=== PATIENT | female | born 1990 | race Caucasian/White ===

== ENCOUNTER 2025-03-20 14:55 | Emergency (ER) | payer BC, SELFPAY ==
--- NOTE | ~2025-03-20 | CT_ITS ---
CLINICAL HISTORY: lower abdominal pain CT abdomen and pelvis with contrast Comparison: None provided Findings: LIMITED CHEST: Lung bases are clear. LIVER: No focal liver lesion. BILIARY: No gallbladder wall thickening, radiopaque stone, or ductal dilatation. PANCREAS: No mass or ductal dilatation. SPLEEN: No splenomegaly. KIDNEYS: No hydronephrosis or radiopaque stone. ADRENALS: No nodule. VASCULAR: No aneurysm. RETROPERITONEUM: No lymphadenopathy or mass. BOWEL/MESENTERY: No evidence of obstruction. No free fluid or air. Normal appendix. ABDOMINAL WALL: No mass or significant abnormality. URINARY BLADDER: No focal wall thickening. PELVIC NODES: No pelvic lymphadenopathy. PELVIC ORGANS: Right adnexal cystic lesion measuring 3.2 cm. Normal appearance of the left ovary. Retroflexed uterus. BONES: No acute fracture. OTHER: Negative. IMPRESSION: Right adnexal cystic lesion measuring 3.2 cm, may be ovarian in origin. This would be better evaluated with ultrasound. Normal appendix. This document has been electronically signed by: Sharonda Quigley MD on 03/20/2025 19:15:52
[2025-03-20 15:27] VITALS: BP 137/99; PULSE 92; RESP 18; TEMP 36.4; O2SAT 98; BMI 25.1
--- NOTE | 2025-03-20 15:27 | ED_ITS ---
HPI - General Adult General Chief complaint: Abdominal Pain Stated complaint: abd pain quest uti breast pain Time Seen by Provider: 03/20/25 16:29 Source: patient and family (patient's mother (via telephone)) Mode of arrival: ambulatory Limitations: no limitations History of Present Illness ED Provider: Tatianna Keatnig PA-C HPI narrative: Patient is a 34 year old assigned female at with a history of PTSD presenting to the emergency department today with increased anxiety, inability to sleep, right lower quadrant abdominal pain, and right sided breast pain. Patient states that over the last few days she has felt much more anxious / worked up and unable to sleep. Patient states that she has also been having right lower quadrant abdominal pain. Patient states that her right breast has been hurting intermittently for awhile and she had a mammogram that showed she had dense breasts. Patient's mother states that the patient has not been taking the Ativan she was prescribed to sleep and she convinced her to take one today but she was considering tricking her with one. Patient states that this started after receiving prednisone for a pinched nerve in the right shoulder. Patient states that she has been off of the prednisone for several days. Patient states that was she was incorrectly diagnosed as Bipolar several years ago during a psychiatric hospitalization because the facility found out that her father has bipolar disorder. Patient states that she has since [facility] with [facility] and [facility] stated that she has anxiety disorder and PTSD but not bipolar disorder. Patient states that she continues to be in the guard / . Patient denies any other complaints at this time. Related Data Home Medications ?Medication ?Instructions ?Recorded ?Confirmed hydroxyzine pamoate 25 mg capsule 25 mg PO Q6H PRN Anx iety 03/21/25 03/21/25 lorazepam 1 mg tablet 1 mg PO DAILY PRN Insomnia 1 05/21/24 03/21/25 Previous Rx's ?Medication ?Instructions ?Recorded cefuroxime axetil 250 mg tablet 250 mg PO Q12H 5 days #10 tabs 03/21/25 cephalexin 500 mg capsule 500 mg PO Q12H #13 caps 02/28 07/21 phenazopyridine 200 mg tablet 200 mg PO TID PRN Burnin g with 03/21/25 (Pyridium) urination 3 days #9 tabs phenazopyridine 200 mg tablet 200 mg PO TID PRN pain # 10 tabs 03/21/25 (Pyridium) Allergies Allergy/AdvReac Type Severity Reaction Status Date / Time No Known Allergies Allergy Verified 03/20/25 15:30 Review of Systems 2 Constitutional: Constitutional: Reports as per HPI Eyes: Eyes: Reports as per HPI ENT: Reports as per HPI Cardiovascular: Cardiovascular: Reports as per HPI Respiratory: Respiratory: Reports as per HPI Gastrointestinal: Gastrointestinal: Reports as per HPI Genitourinary: Genitourinary: Reports as per HPI Musculoskeletal: Musculoskeletal: Reports as per HPI Integumentary/Breasts: Skin/Breast: Reports as per HPI Neurologic: Reports as per HPI Psychiatric: Psychiatric: Reports as per HPI Endocrine: Endocrine: Reports as per HPI Hematologic/Lymphatic: Hematologic/Lymphatic: Reports as per HPI Allergic/Immunologic: Allergic/Immunologic: Reports as per HPI [facility] Past Medical History Attestation statement: The following information was validated with the patient. (all information validated with the patient's mother) Source: old records reviewed, obtained from family (patient's mother provided additional history and confirmed the history provided by the patient. ) and nursing notes reviewed Physical Exam ED Vital Signs: Vital Signs - 24 hr 03/20/25 15:27 03/20/25 17:11 03/20/25 19:46 Temperature 97.6 F 98.1 F 98.0 F Pulse Rate 92 79 87 Respiratory Rate 18 18 16 Blood Pressure 137/99 H 101/100 H 129/90 H Pulse Oximetry 98 97 97 Oxygen Delivery Method Room Air Room Air Room Air 03/21/25 05:13 03/21/25 12:57 Temperature 97.8 F 97.8 F Pulse Rate 83 83 Respiratory Rate 18 18 Blood Pressure 137/99 H 137/99 H Pulse Oximetry 98 98 Oxygen Delivery Method Room Air Room Air BMI result Body Mass Index 25.1 Const General: cooperative, no acute distress, alert and awake Nutritional Appearance: well nourished Orientation/consciousness: patient oriented x3 HENMT Head: Yes normal to inspection and Yes atraumatic Ears: hearing grossly normal bilaterally and external ears normal General nose exam: Normal external nose present, no nasal discharge noted and no epistaxis Face and sinus: Yes normal facial exam, No abrasion and No laceration Mouth: Normal oral and palatal mucosa present, no drooling and no muffled voice Eyes General: appearance normal, both eyes and all related structures Periorbital: periorbital findings normal Eyelids: Yes eyelids normal Conjunctivae: conjunctivae normal Pupils: Equal, round and reactive pupils present EOM: EOMs intact bilaterally Neck Neck: Yes normal visual inspection and Yes full ROM Chest Other: Fibrous tissue felt in right breast - examination performed with family at the bed side as chaparone. Resp Effort & Inspection: normal respiratory effort and able to speak in complete sentences GI Palpation (GI): Soft to palpation, not firm, Tenderness to palpation present (GI) in the RLQ, no guarding and not rigid Neuro General: patient oriented x3, moves all extremities and CN's II-XI intact bilaterally Cranial nerves: Yes Equal, round and reactive pupils present Cognition (Neuro): normal cognition Extrem General: Yes normal to inspection, Yes full ROM and Yes capillary refill normal Psych Appearance: grossly normal Mental Status: mental status grossly normal Affect: Anxious affect present Course Course Course Narrative: RME, this is a rapid medical exam performed by Blake May please refer to primary provider for complete H&P- 34 year old female presents for evaluation of lower abdominal pain that she feels is related to ovary pain. she also endorses right-sided chest/ breast pain and high blood pressure. She endorses anxiety over last few days. Reevaluation(s) Reevaluation #1: Patient received in sign-out at change of shift pending CT imaging and disposition. Her CT scan showed an adnexal cystic structure near the right ovary which is likely an ovarian cyst. There was no surrounding inflammatory changes to suggest abscess. I discussed this finding with the patient and she reports that this has been going on for several months. She is following up with OBGYN and has an appointment in a couple of weeks. I discussed possible additional workup including pelvic ultrasound which she declined at this time and I feel this is appropriate as I have a very low suspicion for tubo-ovarian abscess. The patient is currently pain-free, has not had any fevers. I discussed the treatment of her anxiety and insomnia. The patient reports a history of PTSD and anxiety, she is willing to stay for a respite bed to be restarted on medications if that is recommended. I also discussed with Shey from the care team who believes the patient would benefit from a respite bed search. the patient is staying voluntarily and is not on a section 12 Time: 19:31 Reevaluation #2: 03/21/25 Provider: Holden Gonzalez MD 05:15 Patient in physician observation for psychiatric evaluation.? No acute events reported overnight. No current complaints. VS stable except for elevated blood pressure of 137/99, the patient is asymptomatic we will continue to monitor vital signs.? Patient was evaluated by the CARE team and has been referred to [facility] Respite and [facility]. Will continue to monitor. 12:02 Physician observation ended at 1202. Patient has been cleared for discharge by the CARE team. The patient will follow up with [facility] for further management. Patient's urinalysis was positive for blood, nitrates, leukocyte esterase with microscopic ring greater than 50 WBCs with no bacteria. The patient is having pelvic pain with frequency but no dysuria. Patient was given 1 dose of Keflex here in the emergency department. She was given a prescription for cephalexin 250 mg pills, 1 pill every 12 hours x5 days. I also prescribed Pyridium 200 mg TID x3 days PRN. CT scan did reveal a right adnexal cystic lesion measuring 3.2 cm, patient states she has a follow up appointment with her physical therapy resident and will discuss this result with her provider. Medications Administered Discontinued Medications Generic Name Dose Route Start Last Admin Trade Name Freq PRN Reason Stop Dose Admin Cephalexin HCl 500 mg 03/21/25 05:21 03/21/25 05:28 Cephalexin 500 Mg Capsule PO 03/21/25 05:22 500 mg ONCE ONE Administration Iohexol 100 ml 03/20/25 17:37 03/20/25 17:38 Iohexol 350 Mg/Ml 100 Ml Infus..Btl IV 03/20/25 17:38 85 ml ONCE ONE Administration Lorazepam 1 mg 03/20/25 21:00 03/20/25 19:48 Lorazepam 1 Mg Tablet PO 1 mg BEDTIME PRN Administration Insomnia Lorazepam 0.5 mg 03/21/25 08:06 03/21/25 08:10 Lorazepam 0.5 Mg Tablet PO 03/21/25 08:07 0.5 mg ONCE ONE Administration Lorazepam 0.5 mg 03/21/25 12:25 03/21/25 12:52 Lorazepam 0.5 Mg Tablet PO 03/21/25 12:26 0.5 mg ONCE ONE Administration Phenazopyridine HCl 200 mg 03/21/25 05:23 03/21/25 05:28 Phenazopyridine Hcl 200 Mg Tablet PO 03/21/25 05:24 200 mg ONCE ONE Administration Medical Decision Making Medical Decision Making [facility] Narrative: Patient is a 34 year old assigned female at with a history of PTSD presenting to the emergency department today with increased anxiety, inability to sleep, right lower quadrant abdominal pain, and right sided breast pain. Patient's physical exam was as noted in the physical exam portion of this note. Patient's blood work showed an elevated WBC count of 14.8 but otherwise unremarkable. Patient's urine is pending. Patient's EKG was unremarkable. Patient's CT abdomen/pelvis is pending. I explained my physical exam findings as well as all test results to the patient and the patient's [id number]. I answered all questions asked by the patient and the patient's [id number]. Patient signed out to MARIUM Lozano pending UA, CT abdomen/pelvis results, and CARE team evaluation. Differential Diagnosis Differential Diagnoses: The differential diagnosis associated with the presentation includes Abdominal pain Fibrous breast Татьяна Paranoia Psychosis Admission/Observation Consideration of admission/observation: Escalation of care including admission/observation considered Patient's disposition will be determined after CT abdomen/pelvis, UA, and CARE Team evaluation. Lab Data [facility] Lab Attestation statement: I reviewed the patient's lab results. My interpretation of these results are in the MDM Rationale portion of this note. 03/20/25 15:43 03/20/25 15:43 Labs: Lab Results 03/20/25 03/20/25 03/21/25 Range/Units 15:43 19:40 05:43 WBC 14.8 H (4.8-10.8) X10*3/uL RBC 4.42 (4.20-5.50) X10*6/uL Hgb 13.9 (12.0-16.0) g/dl Hct 39.8 (37.0-47.0) % MCV 90.0 (80.0-98.0) fL MCH 31.4 (27.0-33.0) pg MCHC 34.9 (31.0-35.0) g/dl RDW 11.8 (11.0-16.0) % Plt Count 270 (160-400) X10*3/uL MPV 9.6 (9.4-12.3) fL Immature Gran % (Auto) 0.4 (0.0-0.4) % Neut % (Auto) 86.0 H (45-73) % Lymph % (Auto) 6.1 L (20-40) % Frontier % (Auto) 5.4 (2-11) % Eos % (Auto) 1.8 (0-4) % Baso % (Auto) 0.3 (0-2) % Lymph # (Auto) 0.9 L (1.2-4.9) X10*3/uL Frontier # (Auto) 0.8 (0.1-1.2) X10*3/uL Eos # (Auto) 0.3 (0.0-0.4) X10*3/uL Baso # (Auto) 0.1 (0.0-0.2) X10*3/uL Abs Immat Gran (auto) 0.06 H (0.00-0.03) X10*3/uL Absolute Neuts (auto) 12.7 H (2.0-8.3) x10*3/uL Absolute Nucleated RBC 0.000 (0.0-0.012) X10*3/uL Nucleated RBC % (auto) 0.0 (0.0-0.2) /100WBC Sodium 140 (135-145) mmol/L Potassium 3.9 (3.3-5.1) mmol/L Chloride 105 (96-108) mmol/L Carbon Dioxide 28 (22-29) mmol/L Anion Gap 11 L (12-20) BUN 10 (9-16) mg/dL Creatinine 0.61 (0.5-1.4) mg/dL Estim Creat Clear Calc 126.3 Estimated GFR > 60 Random Glucose 96 (60-115) mg/dL Calcium 9.3 (8.4-10.2) mg/dL Magnesium 2.0 (1.6-2.6) mg/dL Total Bilirubin 0.7 (0.0-1.0) mg/dL AST 24 (5-31) U/L ALT 22 (0-31) U/L Alkaline Phosphatase 59 (39-117) U/L Troponin I High Sens 3.4 (<3.5-17.0) ng/L Total Protein 6.8 (6.5-8.0) g/dL Albumin 4.7 (3.5-5.0) g/dL Beta HCG, Quant < 2 mIU/mL Urine Color Yellow Urine Appearance Clear Urine pH 7.0 (5.0-9.0) Ur Specific [place] <= 1.005 (1.005-1.025) Urine Protein Negative (Neg-Trace) mg/dL Urine Glucose (UA) Negative (Negative) mg/dL Urine Ketones Negative (Negative) mg/dL Urine Blood Moderate (2+) H (Negative) Urine Nitrite Positive H (Negative) Ur Leukocyte Esterase Large (3+) H (Negative) Urine RBC 0-2 (0-2) /HPF Urine WBC >50 H (0-5) /HPF Ur Squamous Epith Cells 0-2 (0-2) /HPF Urine Bacteria None Seen (None Seen) Hyaline Casts 0-2 (0-2) /LPF Chlam trachomat DNA PCR NOT DETECTED (Not Detect.) HIV 1&2 Ab/P24 Ag 4thGn Nonreactive (Nonreactive) N.gonorrhoeae DNA (PCR) NOT DETECTED (Not Detect.) T. vaginalis (PCR) NOT DETECTED (Not Detect) Bact vaginosis (PCR) NEGATIVE (Negative) C. krusei/glabrata (PCR) NOT DETECTED (Not Detect) Margaux group (PCR) NOT DETECTED (Not Detect) Independent Interpretation I performed an independent interpretation of an: EKG Interpretation: I independently interpreted this EKG and am in agreement with the below findings: Vent. Rate: 81 BPM Atrial Rate: 81 BPM P-R Int: 140 ms QRS Dur: 84 ms QT Int: 362 ms P-R-T Axes: 64 66 20 degrees QTcB Int: 420 ms Normal sinus rhythm Normal ECG No previous ECGs available DD/ [id number] Independent Historian Clinical information obtained from an independent historian. History obtained from or confirmed by: Parent (patient's mother provided additional history and confirmed the history provided by the patient. ) and Other (patient's [id number] provided additional history and confirmed the history provided by the patient. ) Discharge Plan Discharge Clinical Impression: Abdominal pain, Fibrous breast lumps, Anxiety, Acute paranoia, Urinary tract infection Patient Disposition: Home, Self-Care Instructions: Urinary Tract Infection in Women (ED) Additional Instructions: Your urinalysis and urine microscopic evaluation revealed a significant amount of white blood cells but no bacteria. Based on your symptoms, I am concerned that you may have a urinary tract infection. Take cefuroxime 250 mg pills, 1 pill every 12 hours for 5 days. Make sure you complete the entire antibiotic course. Take Pyridium 200 mg pills, 1 pill 3 times a day as needed for painful urination. Please be sure to follow up with your industrial court magistrate or the [facility] for your right breast pain and density. Call them at [phone]. The CT scan of your abdomen pelvis with IV contrast revealed a ?right adnexal cystic lesion measuring 3.2 cm ?, see the radiology report below. You need to follow-up with your industrial court magistrate for this finding as well. Continue taking medications as prescribed by your providers. You were seen by our CARE team clinician and they have referred you to [facility] for outpatient evaluation. Please return to the emergency department if your symptoms get worse or if you develop any symptoms that are concerning to you. CT abdomen and pelvis with contrast Comparison: None provided Findings: LIMITED CHEST: Lung bases are clear. LIVER: No focal liver lesion. BILIARY: No gallbladder wall thickening, radiopaque stone, or ductal dilatation. PANCREAS: No mass or ductal dilatation. SPLEEN: No splenomegaly. KIDNEYS: No hydronephrosis or radiopaque stone. ADRENALS: No nodule. VASCULAR: No aneurysm. RETROPERITONEUM: No lymphadenopathy or mass. BOWEL/MESENTERY: No evidence of obstruction. No free fluid or air. Normal appendix. ABDOMINAL WALL: No mass or significant abnormality. URINARY BLADDER: No focal wall thickening. PELVIC NODES: No pelvic lymphadenopathy. PELVIC ORGANS: Right adnexal cystic lesion measuring 3.2 cm. Normal appearance of the left ovary. Retroflexed uterus. BONES: No acute fracture. OTHER: Negative. IMPRESSION: Right adnexal cystic lesion measuring 3.2 cm, may be ovarian in origin. This would be better evaluated with ultrasound. Normal appendix. This document has been electronically signed by: Sharonda Quigley MD on 03/20/2025 19:15:52 You were seen for a concern regarding your mental / behavioral behavioral health. It is important after this visit today that you follow up with either your mental / behavioral health or primary care provider within 7 days (from today).? Return for any worsening symptoms or concerns such as thoughts of harming yourself or others. Please call 911 immediately if you feel your mental health is worsening.? National Suicide and Crisis Lifeline: Available 24 hours a day, 7 days a week, 365 days a year Dial 988 with any telephone to speak to someone immediately [facility] (Mental / Behavioral health therapist: [address] [place], [place] [id number] [facility] at [facility]: [address] [place] [address] Open from 10am - 12pm (walk ins welcome) [facility] Crisis Services: [address], [place] [id number] Walk in hours from 10am - 12pm Behavioral health Network: [address] [place] [id number] [address] [place] [phone] Saturday through Saturday 8am - 8pm Saturday and Saturday 9am - 5pm IF you are prescribed medications and/or you are taking over the counter medications - it is very important you continue to do so as prescribed / directed unless told otherwise. Follow up with your primary care provider. Return to the emergency department immediately if your symptoms worsen or if you develop any numbness, tingling, dizziness, shortness of breath, difficulty breathing, chest pain, blurry vision, loss of vision, nausea, vomiting, abdominal pain, fever, chills, back pain, or any other complaints. Prescriptions: New cephalexin 500 mg capsule 500 mg PO Q12H Qty: 13 0RF phenazopyridine [Pyridium] 200 mg tablet 200 mg PO TID PRN (Reason: pain) Qty: 10 0RF cefuroxime axetil 250 mg tablet 250 mg PO Q12H 5 Days Qty: 10 0RF phenazopyridine [Pyridium] 200 mg tablet 200 mg PO TID PRN (Reason: Burning with urination) 3 Days Qty: 9 0RF No Action hydroxyzine pamoate 25 mg capsule 25 mg PO Q6H PRN (Reason: Anxiety) lorazepam 1 mg tablet 1 mg PO DAILY PRN (Reason: Insomnia) Interventions: ED Discharge Assessment Last Done: 03/21/25 12:57 Discharge Date/Time: 03/21/25 12:58 Print Language: Maori
--- NOTE | 2025-03-20 15:33 | ECG_ITS ---
Test Reason : PAIN Blood Pressure : */* mmHG Vent. Rate : 81 BPM Atrial Rate : 81 BPM P-R Int : 140 ms QRS Dur : 84 ms QT Int : 362 ms P-R-T Axes : 64 66 20 degrees QTcB Int : 420 ms Normal sinus rhythm Normal ECG No previous ECGs available Referred By: Isaac May Electronically Signed By: EUFEMIA JONES
[2025-03-20 15:49] LABS: MANUAL DIFF FLAG NO
[2025-03-20 15:56] LABS: Hematocrit 39.8 % (37.0-47.0); Hemoglobin 13.9 g/dl (12.0-16.0); Imm Gran Abs Auto 0.06 X10*3/uL (0.00-0.03); Imm Gran Pct Auto 0.4 % (0.0-0.4); Lymphocytes Absolute Auto 0.9 X10*3/uL (1.2-4.9); Mean Corpuscular HGB Conc 34.9 g/dl (31.0-35.0); Mean Corpuscular Hemoglobin 31.4 pg (27.0-33.0); Mean Corpuscular Volume 90.0 fL (80.0-98.0); NRBC Abs Auto 0.000 X10*3/uL (0.0-0.012); NRBC Pct Auto 0.0 /100WBC (0.0-0.2); Platelet Count 270 X10*3/uL (160-400); Red Blood Count 4.42 X10*6/uL (4.20-5.50); White Blood Count 14.8 X10*3/uL (4.8-10.8)
[2025-03-20 16:11] LABS: Troponin-I High Sensitivity 3.4 ng/L (<3.5-17.0)
[2025-03-20 16:19] LABS: Anion Gap 11 (12-20); Calcium 9.3 mg/dL (8.4-10.2); Carbon Dioxide 28 mmol/L (22-29); Chloride 105 mmol/L (96-108); Potassium 3.9 mmol/L (3.3-5.1); Sodium 140 mmol/L (135-145); Total Protein 6.8 g/dL (6.5-8.0)
[2025-03-20 16:33] LABS: Alanine Aminotransferase 22 U/L (0-31); Albumin Level 4.7 g/dL (3.5-5.0); Alkaline Phosphatase 59 U/L (39-117); Aspartate Amino Transferase 24 U/L (5-31); Blood Urea Nitrogen 10 mg/dL (9-16); Creatinine Clr Calc Pharmacy 126.3; Estimated Glomerular Filt Rate > 60; Magnesium 2.0 mg/dL (1.6-2.6)
[2025-03-20 17:11] VITALS: BP 101/100; PULSE 79; RESP 18; TEMP 36.7; O2SAT 97
--- NOTE | 2025-03-20 17:18 | PC.NURSE ---
ABd soft non-tender. No N/V/D reports that she's felt hightened since taking prednisone. 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 Pt has had some paranoia according to friend and hasn't been sleeping. skin pwd.
[2025-03-20] MEDS: iohexoL 350 MG/ML 100 ML INFUS..BTL IV (17:38)
[2025-03-20 19:46] VITALS: BP 129/90; PULSE 87; RESP 16; TEMP 36.7; O2SAT 97
[2025-03-20 19:48] LABS: Appearance Urine Clear; Glucose Urine UA Negative (Negative); PH 7.0 (5.0-9.0); Specific Gravity - Urine <= 1.005 (1.005-1.025); UMIC TRIGGER UACC YES
[2025-03-20 19:55] LABS: UACC Culture Trigger YES
--- NOTE | 2025-03-20 20:52 | MHC.CARE ---
Pt referred to [facility] and [facility]. Pt prefers [facility]- they may have a bed tomorrow. Confirmed [facility] received referral, spoke with Erika. [facility] has bed available and are reviewing referral.
[2025-03-21 01:58] LABS: Bacterial Vaginosis PCR NEGATIVE (Negative); Candida Group PCR NOT DETECTED (Not Detect); Candida glab krusei PCR NOT DETECTED (Not Detect); Trichomonas vaginalis PCR NOT DETECTED (Not Detect)
[2025-03-21 02:29] LABS: CT PCR NOT DETECTED (Not Detect.); NG PCR NOT DETECTED (Not Detect.)
--- NOTE | 2025-03-21 03:05 | PC.NURSE ---
Pt appears to be sleeping at this time. Plan of care ongoing.
[2025-03-21 05:13] VITALS: BP 137/99; PULSE 83; RESP 18; TEMP 36.6; O2SAT 98
--- NOTE | 2025-03-21 08:03 | MHC.CARE ---
Approved for [facility]- [facility] to call back to coordinate transfer time
--- NOTE | 2025-03-21 08:11 | PC.NURSE ---
Patient feeling anxious Notified provider Adminstered 0.5 mg ativan per MAR Effectiveness pending
--- NOTE | 2025-03-21 09:11 | PHA.MEDREC ---
Pharmacy Consult ? Medication Reconciliation Pharmacy has completed the medication reconciliation. Spoke with patient at bedside, she confirmed she started cephalexin and phenazopyridine here and takes Lorazepam 1mg prn sleep and hydroxyzine 25mg Q6H prn at home. States she doesn't really use the hydroxyzine and was given a prescription for Flexiril and Meloxicam but doesn't use them either.
[2025-03-21 12:57] VITALS: BP 137/99; PULSE 83; RESP 18; TEMP 36.6; O2SAT 98
[2025-03-22 04:50] LABS: HIV Num 1 0.07 S/CO (0.00-0.99)
== END 2025-03-21 12:58 | disposition home or self-care (01) ==
PROVIDERS: Physician Assistant; Physician Assistant Medical; Emergency Provider Emergency Medicine Emergency Medical Services; PCP Internal Medicine
DX: R10.31 Right lower quadrant pain (principal); N39.0 Urinary tract infection, site not specified; N63.10 Unspecified lump in the right breast, unspecified quadrant; F41.9 Anxiety disorder, unspecified; N83.201 Unspecified ovarian cyst, right side; F22 Delusional disorders; Z79.899 Other long term (current) drug therapy
CPT/HCPCS: 36415; 74177; 80053; 81001; 81515; 83735; 84484; 84702; 85025; 87086; 87389; 87491; 87591; 93005; 99285; Q9967; S9485

== ENCOUNTER → 2025-03-20 15:33 | Outpatient (BNV) | payer BC, SELFPAY | PROVIDERS: Emergency Provider Emergency Medicine Emergency Medical Services; PCP Internal Medicine; Visit Provider Internal Medicine | DX: R07.9 Chest pain, unspecified (principal) | CPT/HCPCS: 93010 ==

== ENCOUNTER → 2025-03-20 16:49 | Outpatient (BNV) | payer BC, SELFPAY | PROVIDERS: Emergency Provider Emergency Medicine Emergency Medical Services; PCP Internal Medicine; Visit Provider Student in an Organized Health Care Education/Training Program | DX: N83.201 Unspecified ovarian cyst, right side (principal) | CPT/HCPCS: 74177 ==